=== PATIENT | female | born 1935 | race Caucasian/White ===

== ENCOUNTER → 2016-12-03 | Outpatient (CLI) | payer OTHER ==
[~2016-12-03] MED LIST: ADULT LOW DOSE81 MG PO; ADVAIR 250-501 EACH INH; ADVAIR 500-501 EACH INH; ADVAIR HFA115 MCG/21 INH; ALBUTEROL NEB; ASPIRIN EC81 M1 PO; ASPIRIN325 PO; AVELOX 400 MG400 MG PO; BENZONATATE200 MG PO; COMBIVENT INH; COSAMIN DS CAP1 EAC1 PO; DEMADEX20 MG PO; FIRST-PROGESTER25 MG PO; FISH OIL 1,0001 EAC5 PO; FISHOIL PO; GLUCOSAMINE &1 EAC1 PO; LEVAQUIN 500 M500 M4 PO; LEVAQUIN 500 M500 M5 PO; LEVAQUIN250 MG/10 PO; LEVSIN PO; LIDODERM 5%1 PATC1; OCUVITE PRESER1 EACH PO; OMEGA-3 + VITA1 EAC1 PO; PERCOCET; PHENERGAN-CODE120 ML PO; PREDNISOLONE 5 M5 MG PO; PREDNISONE 10 M10 M1; PREDNISONE 10 M10 M1 PO; PREDNISONE 10 M10 MG PO; PREDNISONE 2.52.5 M1 PO; PREDNISONE 20 M20 MG PO; PREDNISONE 5 MG5 M1 PO; PREMARIN0.3 MG PO; PROMETRIUM PO; SINGULAIR 10 MG10 M1 PO; VENTOLIN17 GM INH; ZYRTEC10 M1 PO
== END ==
LOC: HYPER 07:55
DX: I87.2 Venous insufficiency (chronic) (peripheral) (principal); L97.811 Non-pressure chronic ulcer of other part of right lower leg limited to breakdown of skin; S41.111D Laceration without foreign body of right upper arm, subsequent encounter; I25.10 Atherosclerotic heart disease of native coronary artery without angina pectoris; E78.5 Hyperlipidemia, unspecified; Z85.3 Personal history of malignant neoplasm of breast; Z87.891 Personal history of nicotine dependence; Z72.89 Other problems related to lifestyle; X58.XXXD Exposure to other specified factors, subsequent encounter; Y92.9 Unspecified place or not applicable; Y99.9 Unspecified external cause status

== ENCOUNTER → 2016-12-08 | Outpatient (CLI) | payer OTHER ==
[~2016-12-08] VITALS: Ht 167.6 cm; Wt 90.7 kg
[~2016-12-08] MED LIST changes: +AZITHROMYCIN250 MG PO; +DOXYCYCLINE 10100 MG PO; +OCCUVITE; +PRESERVISION L1 EACH PO; +TUDORZA PRESS400 MCG IH; +VITAMIN D 5050000 I1 PO
--- NOTE | ~2016-12-08 | HPC ---
[facility] [address] [place] [address] PAIN MANAGEMENT CONSULTATION Name: CARLOTA JOYCE Room #: REG BRENDAN Garcia#: [id number] Admission: 12/08/16 Attend Phys: Lebron Miner DO Discharge: Date of : 34 Report #: [id number] THIS REPORT FOR: //name// CC: Lebron Leavitt DATE OF SERVICE: 12/08/2016 DATE OF SERVICE: 12/08/2016 CHIEF COMPLAINT: Right shoulder pain. HISTORY OF PRESENT ILLNESS: As you know, the patient is an 81-year-old female with longstanding history of right shoulder pain. The patient indicates her pain began years ago and progressively worsened. She apparently received 2 injections at a clinic in [place], but is unaware of whether these were helpful or not. She is not even sure of the type of injection she received, but believes it was in the right shoulder. She has been undergoing massage therapy. She has been through 4 sessions and this appears to be improving her symptoms. She continues to experience right shoulder pain. She has been referred to our service by her primary care physician. She comes with no available imaging and no workup in regards to the right shoulder. She does deny any potential neck pain or radicular symptoms today. She indicates pain is rhythmic and periodic, describes the pain as aching and throbbing, places current pain score at 8/10, daily average of 5/10, worst the pain has been is 8/10. The patient states the pain is exacerbated with movement of her right shoulder. It improves with nothing to date. PAST MEDICAL HISTORY: 1. Pulmonary fibrosis. 2. Coronary artery disease. 3. Degenerative joint disease. 4. Osteoarthritis. 5. Breast cancer status post lumpectomy, chemotherapy and radiation. 6. History of shingles. PAST SURGICAL HISTORY: 1. Pacemaker 1990. 2. Tubal ligation. 3. Tonsillectomy. 4. Right lumpectomy. 5. Left radical mastectomy. 6. Multiple skin grafts. SOCIAL HISTORY: The patient smokes 1 pack of tobacco per day and has done so [facility] [address] [place] [address] PAIN MANAGEMENT CONSULTATION Name: CARLOTA JOYCE Room #: REG BRENDAN Garcia#: [id number] Admission: 12/08/16 Attend Phys: Lebron Miner DO Discharge: Date of : 34 Report #: [id number] for as long as she can remember. Denies IV or illicit drug use. Admits to one alcoholic beverage per week. She is retired, unaccompanied today's visit. She is not in litigation in regards to her pain. REVIEW OF SYSTEMS: Positive for wearing corrective eyewear, hearing loss with tinnitus, shortness of breath, walking or lying flat, frequent and recurrent coughs, secondary to pulmonary fibrosis, asthma, wheezing, frequent urination, nocturia, incontinence and dribbling to urine, numbness and tingling sensations, right shoulder pain, slow to heal after cuts, bleeding and bruising tendencies. All other review of systems negative per 12-point review of systems. Pain impact score 8/70 indicating mild interference of daily activities secondary to pain. ALLERGIES: No reported drug allergies. CURRENT MEDICATIONS: See extensive list in chart. IMAGING: No imaging available. PHYSICAL EXAMINATION: VITAL SIGNS: Blood pressure 147/73, pulse is 84, respiratory rate 22 and unlabored. The patient is 96% on room air. Height 5 feet 6 inches tall, weight 204 pounds. GENERAL: Well-developed, well-nourished, well-hydrated, morbidly obese 81-year-old female appearing stated age, placing current pain score today at 8/10. HEENT: Normocephalic, atraumatic. Pupils equal, round, reactive to light. Extraocular muscles are intact. Sclerae nonicteric without injection. NEUROLOGIC: Cranial nerves 2-12 grossly intact. Speech is fluent. The patient deemed a fair historian. LUNGS: Decreased breath sounds bilaterally. There is some wheezing in the bases and apices. CARDIOVASCULAR: Regular. No appreciable gallop or rub. ABDOMEN: Soft, nontender, nondistended. EXTREMITIES: Show no clubbing, no cyanosis, no edema. MUSCULOSKELETAL: The patient has palpatory tenderness over the right shoulder. Active and passive range of motion of right shoulder intensifies the patient's pain. Spurling's test is negative. Cervical provocation testing causes intensification of upper shoulder, lower neck pain with rotation, lateral flexion to the left, negative right. ASSESSMENT: 1. Right shoulder pain. 2. Chronic intractable pain. PLAN: [address] [address] PAIN MANAGEMENT CONSULTATION Name: CARLOTA JOYCE Room #: REG BRENDAN Garcia#: [id number] Admission: 12/08/16 Attend Phys: Lebron Miner DO Discharge: Date of : 34 Report #: [id number] 1. The patient has been referred to our service by her primary care physician, Dr. Milo Leavitt for evaluation. The patient comes to us reporting chronic right shoulder pain. She indicates that she received injections in [place], but cannot remember the injections nor can she remember whether or not she received any benefit. She comes to us today without x-ray imaging or imaging studies to evaluate further. Symptoms appear to be related strictly to the shoulder joint. I am unable to elicit any cervical radicular symptoms in the patient's presentation today. We have discussed with the patient the options for treatment for shoulder pain. These would include physical therapy, stretching exercises, core strengthening with increasing mobility. We discussed medication management with nonsteroidal anti-inflammatory. We discussed intra-articular shoulder injections and referral to orthopedic surgery assuming a significant pathology in the shoulder itself. After reviewing the risks and benefits of all proposed treatment options, the patient chose to undergo right intra-articular shoulder injection. The patient was advised the risks and benefits of a right intra-articular shoulder injection. These risks include but are not necessarily limited to bleeding, bruising, infection, worsening pain, no relief of pain, also risk of temporary or permanent muscle weakness, temporary or permanent nerve damage, possible paralysis and joint destruction. The patient states understood and wished to proceed. 2. The patient will be sent for right shoulder Imaging. The patient will undergo the x-ray imaging as quickly as possible. Review of the findings once they are available. If findings are fairly inconsistent with her presentation, would recommend MRI of the right shoulder or at least a referral to orthopedics for evaluation. We will review the x-ray imaging once this is available and discussed this with the patient in followup visit. 3. No medication changes were made at today's visit. The patient will continue current medical therapy as previously prescribed. 4. The patient to return to our clinic in approximately 2 weeks. At that time, review efficacy of the injection provided today and discuss if we need to move forward with more aggressive treatments. We wish to thank you for the opportunity to see the patient home in consultation. We will keep you apprised of her response to treatment. PROCEDURE NOTE DESCRIPTION OF PROCEDURE: Right intra-articular shoulder injection under fluoroscopic guidance. After obtaining written consent, the patient was taken back to fluoroscopy suite, placed in a supine position. The area over the right shoulder was prepped and draped in aseptic fashion. The image intensifier was then brought into position over the right shoulder and imaging was obtained. The area of the injection was marked with a sterile marker. [address] [address] PAIN MANAGEMENT CONSULTATION Name: CARLOTA JOYCE Room #: REG BRENDAN Garcia#: [id number] Admission: 12/08/16 Attend Phys: Lebron Miner DO Discharge: Date of : 34 Report #: [id number] A #25 gauge 1-1/4 inch needle was used to anesthetize skin and subcutaneous tissue with 1 mL of 1% lidocaine. A #25-gauge 2-inch needle was then advanced under fluoroscopic guidance into the right shoulder joint. After entering the joint, aspiration was noted to be negative for heme, 0.2 mL of Omnipaque was injected demonstrating excellent facet arthrogram. After negative aspiration for heme, 3 mL of solution containing 1 mL 40 mg per mL, 40 mg total triamcinolone, 2 mL bupivacaine 0.5% was injected slowly. Needle retracted correction, flushed with 1 mL of bupivacaine 0.5% and removed. Sterile bandage placed over injection site. The patient tolerated the procedure well, carefully escorted to the recovery in stable condition. No apparent complications. After meeting discharge criteria, the patient discharged home. By: [id number] [id number] Lebron Miner DO /nt
[2016-12-08 09:54] VITALS: BP 142/81
== END | disposition home or self-care (01) ==
LOC: PAIN 12-06 10:25
DX: M25.511 Pain in right shoulder (principal); G89.29 Other chronic pain; I25.10 Atherosclerotic heart disease of native coronary artery without angina pectoris; M19.90 Unspecified osteoarthritis, unspecified site; F17.210 Nicotine dependence, cigarettes, uncomplicated; Z85.3 Personal history of malignant neoplasm of breast; Z98.890 Other specified postprocedural states

== ENCOUNTER → 2016-12-22 | Outpatient (CLI) | payer OTHER ==
[~2016-12-22] VITALS: Ht 157.5 cm; Wt 76.7 kg
[~2016-12-22] MED LIST changes: +FLEXERIL PO; +MOBIC7.5 MG PO
--- NOTE | ~2016-12-22 | HPC ---
[facility] [place] [address] PAIN MANAGEMENT CONSULTATION Name: CARLOTA JOYCE Room #: REG BRENDAN Jose#: [id number] Admission: 12/22/16 Attend Phys: Lebron Miner DO Discharge: Date of : 34 Report #: [id number] THIS REPORT FOR: //name// CC: Lebron Leavitt MD DATE OF SERVICE: 12/22/2016 REFERRING PHYSICIAN: Milo Leavitt MD. CHIEF COMPLAINT: Right shoulder pain. HISTORY OF PRESENT ILLNESS: As you know, the patient is an 81-year-old female with a longstanding history of right shoulder pain. We saw the patient in consultation per the request of Dr. Leavitt on 12/08/2016, when she was diagnosed with right shoulder arthritis and right shoulder pain. She underwent an intra-articular shoulder injection under fluoroscopic guidance, which provided near 100% improvement in overall pain. Her pain at present is 0/10. She returns today in followup visit to discuss the possibility of moving forward with the next in the series of injections if her pain does return. She is doing well. She has been able to return to all activities of daily living without significant pain interference. ALLERGIES: No known drug allergies. CURRENT MEDICATIONS: Ocuvite, vitamin D, doxycycline, Tudorza, azithromycin, prednisone, Advair, Combivent, Zyrtec, Singulair, albuterol, and beta-carotene. SOCIAL HISTORY: The patient denies IV or illicit drug use. Denies significant alcohol use. She continues to smoke one pack of tobacco per day. She is retired. She is unaccompanied today. IMAGING: No new imaging available. PHYSICAL EXAMINATION: VITAL SIGNS: Blood pressure 129/58, pulse 85, respiratory rate 14 and unlabored. The patient is 99% on room air, height 5 feet 2 inch tall, weight 169 pounds, BMI calculated 30.9. GENERAL: Well-developed, well-nourished, and well-hydrated. Exogenously obese 81-year-old female appearing her stated age. She is placing current pain score 0/10. HEENT: Normocephalic and atraumatic. Pupils are equal, round, and reactive to light. Extraocular muscles are intact. EXTREMITIES: Show no clubbing, no cyanosis, no edema. MUSCULOSKELETAL: Active and passive range of motion of right shoulder is met [address] [address] PAIN MANAGEMENT CONSULTATION Name: NANICARLOTA GOETZ Room #: REG CLI [facility]#: [id number] Admission: 12/22/16 Attend Phys: Lebron Miner DO Discharge: Date of : 34 Report #: [id number] with improved mobility, very little pain is elicited with movement today. There is some palpatory tenderness over the shoulder itself. This is fairly mild. Cervical provocation testing does cause intensification of shoulder pain. Spurling's test is negative. ASSESSMENT: 1. Right shoulder pain. 2. Chronic intractable pain. PLAN: 1. The patient has returned today in followup visit now, reporting pain score 0/10 after our intra-articular shoulder injection. The patient has done very well with this injection. I would recommend that we delay the next in the series of injections until which time her pain returns. She has been doing very well, returning to all activities of daily living without pain interference. We would recommend continuation of this activity until which time her pain intensifies. We would then make an appointment back to undergo the next in the series of intra-articular shoulder injections. If these shoulder injections do not provide benefit from a long-term standpoint, we could consider medication management or referral to orthopedics for evaluation for rotator cuff injuries. From cervical radicular symptoms, I am unable to elicit any of these again today. She does have findings in the cervical spine that would be a possibility of cervical radiculopathy, but given the improvement in symptoms with the right shoulder pain, I believe that her main generator of symptoms at this time is the right shoulder. We will continue to concentrate on the shoulder at her followup visit. 2. We are pleased to see the patient has done very well with this injection. We will be returning her care to her primary care physician, but we are available to see her back in followup visit on an as needed basis for possible next in the series of intra-articular shoulder injections. <ELECTRONICALLY SIGNED> By: Lebron Miner DO 12/28/16 1602 0728 1247 Lebron Miner DO /nt
[2016-12-22 09:17] VITALS: BP 129/58
== END ==
LOC: PAIN 07:28
DX: G89.29 Other chronic pain (principal); F17.210 Nicotine dependence, cigarettes, uncomplicated; M13.811 Other specified arthritis, right shoulder

== ENCOUNTER → 2017-02-17 | Outpatient (CLI) | payer OTHER | LOC: RAD 14:51 | DX: J84.112 Idiopathic pulmonary fibrosis (principal) ==

== ENCOUNTER 2017-05-30 04:10 | Inpatient (IN) | payer OTHER ==
[2017-05-30] VITALS (8 sets, daily range): BP systolic 104–114; BP diastolic 51–62
[~2017-05-30] VITALS: Ht 162.6 cm; Wt 74.9 kg
--- NOTE | ~2017-05-30 | HC ---
[facility] [place] [address] CONSULTATION Name: CARLOTA JOYCE Room #: 444-P ADM IN M.R.#: [id number] Admission: 05/30/17 Attend Phys: Milo Leavitt MD Discharge: Date of : 34 Report #: [id number] THIS REPORT FOR: //name// CC: Milo Leavitt REASON FOR CONSULTATION: Shortness of breath. HISTORY OF PRESENT ILLNESS: The patient is an 82-year-old woman with history of significant underlying lung disease and COPD. She presents with productive cough and fevers with chills. She was seen in the emergency department where she was hypoxemic and febrile to in excess of 101 degrees. She denies chest heaviness or pressure. No orthopnea or paroxysmal nocturnal dyspnea. The patient has a history of a moderate nonischemic cardiomyopathy, possibly related to ventricular pacing versus prior chemotherapy that she received for remote breast cancer. She denies significant heart failure symptoms. No chest pain, pressure, or ischemic type symptoms. ALLERGIES: To SULFA and PENICILLIN. MEDICATIONS: Include albuterol, Zyrtec, Advair, Combivent, Singulair, prednisone, and vitamin D. PAST MEDICAL HISTORY: Medical records have been reviewed and include a history of heart block with prior pacemaker, lumpectomy in 1982, on the right; left breast cancer in 2013, skin grafting to the right leg, tubal ligation, and tonsillectomy. SOCIAL HISTORY: She is a former smoker, lives independently. FAMILY HISTORY: Unremarkable for premature coronary artery disease. REVIEW OF SYSTEMS: All systems negative except as that noted above. PHYSICAL EXAMINATION: GENERAL: A pleasant woman, in no distress. VITAL SIGNS: Blood pressure is 127/69, heart rate is 78 and regular, temperature is 97.6 degrees, 5 feet 4 inches tall, 165 pounds. HEENT: There are neither xanthelasma, subcutaneous xanthomata, oral mucosal or digital cyanosis or kyphoscoliosis present. CHEST: Reveals bibasilar diminished breath sounds at both bases. There are scattered rhonchi. CARDIAC: Regular rate and rhythm with a paradoxically split second heart sound. ABDOMEN: Soft and nontender. EXTREMITIES: With trace edema. Radial pulses are 2+. NEUROLOGIC: She is alert with a nonfocal exam. LABORATORY DATA: EKG, sinus rhythm with ventricular pacing. Sodium 140, [facility] [address] [place] [address] CONSULTATION Name: CARLOTA JOYCE Room #: 444-P ADM IN M.R.#: [id number] Admission: 05/30/17 Attend Phys: Milo Leavitt MD Discharge: Date of : 34 Report #: [id number] potassium 4.1, creatinine 0.7. Troponin is negative. ProBNP of 4192. White count of 19,000, hemoglobin 10, hematocrit 32, and platelet count 129. Chest x-ray demonstrates left lower lobe pneumonia. IMPRESSION: 1. Pneumonia with hypoxemic respiratory failure. 2. Moderate cardiomyopathy; chronic systolic heart failure. 3. Heart block with prior pacemaker implantation. 4. Pulmonary fibrosis. 5. History of remote breast cancer. RECOMMENDATIONS: 1. Addition of losartan to medical regimen. I believe that carvedilol and/or beta blockade represents relative contraindication in light of her severe lung disease. 2. Her proBNP elevation I suspect reflects more right heart failure from pneumonia than it does systolic heart failure. 3. We will follow along with you. Thank you for asking me to participate in her care. <ELECTRONICALLY SIGNED> By: Afshin Rhodes MD, [facility] 06/02/17 0825 0900 1110 Afshin Rhodes MD, FAC /nt
--- NOTE | ~2017-05-30 | EKG ---
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 Manager In Training: Kandy BELTRÁN : 1935 Requested By: Aileen Corral Order Number: [id number] MD: Afshin Rhodes Measurements Intervals [place] Rate: 112 P: 164 [place]: 18 QRS: 134 QRSD: 141 T: 159 QT: 402 QTc: 549 Interpretive Statements Incomplete tracing Ventricular-paced rhythm No further analysis attempted due to paced rhythm Baseline wander in lead(s) V4 Recommend repeat tracing with all leads present Electronically Signed On 05-30-2017 16:25:41 CDT by Afshin Rhodes [email or web address] <ELECTRONICALLY SIGNED> By: Afshin Rhodes MD, [facility] 05/30/17 1625 0417 0417 Afshin Rhodes MD, [facility] /EPI
--- NOTE | ~2017-05-30 | EKG ---
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 : 1935 Requested By: Lebron Arguelles Order Number: [id number] MD: Afshin Rhodes Measurements Intervals [place] Rate: 94 P: 125 [place]: 192 QRS: -48 QRSD: 140 T: 102 QT: 409 QTc: 512 Interpretive Statements Atrial-sensed ventricular-paced rhythm No further analysis attempted due to paced rhythm Compared to ECG 05/29/2011 14:55:47 No significant changes Electronically Signed On 05-30-2017 16:36:17 CDT by Afshin Rhodes [email or web address] <ELECTRONICALLY SIGNED> By: Afshin Rhodes MD, [facility] 05/30/17 1636 1052 1052 Afshin Rhodes MD, [facility] /EPI
--- NOTE | ~2017-05-30 | HC ---
[facility] [place] [address] CONSULTATION Name: CARLOTA JOYCE Room #: 444-P ADM IN M.R.#: [id number] Admission: 05/30/17 Attend Phys: Milo Leavitt MD Discharge: Date of : 34 Report #: [id number] THIS REPORT FOR: //name// CC: Milo Leavitt DATE OF SERVICE: 05/30/2017 PRIMARY CARE PHYSICIAN: Milo Leavitt MD. REFERRING PHYSICIAN: Aileen Corral DO. REASON FOR REFERRAL: Dyspnea. HISTORY OF PRESENT ILLNESS: The patient is an 82-year-old white female who presents to the emergency room with febrile illness and fever. The patient is admitted for presumed pneumonia. A pulmonary consultation was requested. The patient is followed longitudinally by Dr. Harmon for asthma. She has done fairly well until this past summer when she was hospitalized in [place] for pneumonia. She was in her usual state of health until 3 days prior to presentation when she noticed that she has gotten weaker than normal along with low-grade fever, cough productive of yellowish sputum. With worsening of symptoms, she presents to the emergency room. Portable chest x-ray performed in the ER revealed small bilateral pleural effusion, greater in the left than the right, infiltrates seen in the right lower lobe along with small lung volumes bilaterally. 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 PAST SURGICAL HISTORY: As mentioned above, status post tubal ligation, tonsillectomy, status post right lumpectomy in 1982, left breast lumpectomy in year 2013, and skin grafts in the right leg. ALLERGIES: PENICILLIN, SULFA, reactions not specified. HOME MEDICATIONS: Reviewed. These include Ventolin 2 puffs q.i.d. p.r.n., xvok-zmj-veefgdt supplements, Zyrtec, Advair 500 mcg 1 puff b.i.d., Combivent 2 puffs p.r.n., Montelukast 10 mg once a day, prednisone 10 mg once a day, Tudorza 400 mcg 2 puffs twice a day, recent course of doxycycline 100 mg p.o. b.i.d., [address] [address] CONSULTATION Name: CARLOTA JOYCE Room #: 444-P [facility] IN .R.#: [id number] Admission: 05/30/17 Attend Phys: Milo Leavitt MD Discharge: Date of : 34 Report #: [id number] and vitamin D supplements. FAMILY HISTORY: Noncontributory. SOCIAL HISTORY: She states she smoked for about 4 years when she was young adult. She denies any alcohol use. She is and lives with . REVIEW OF SYSTEMS: As mentioned above, otherwise a 10-point system review negative. PHYSICAL EXAMINATION: GENERAL: She is awake, alert, in no apparent distress. VITAL SIGNS: Temperature maximum is 101.1 degrees Fahrenheit, pulse is 105, respiratory rate is 20, blood pressure 111/52 mmHg, and saturation 96% on supplemental O2. HEENT: Normocephalic and atraumatic. NECK: Supple without any lymphadenopathy or thyromegaly. CHEST: Breath sounds are decreased with bibasilar crackles. No wheezes. CARDIOVASCULAR: Heart sounds are distant. Normal S1, S2. There have been no overt murmurs or gallop. Pulses are 2+/4+ bilaterally. BREASTS: Deferred. ABDOMEN: Moderately obese, soft, and nontender. No organomegaly or masses felt. GENITOURINARY: Deferred. RECTAL: Deferred. EXTREMITIES: Trace edema bilaterally. No cyanosis or clubbing. LABORATORY DATA: Chest x-ray as mentioned above, showing bibasilar infiltrates, atelectasis, small pleural effusion bilaterally, and cardiomegaly. Electrolytes are normal. Creatinine is 1.1. WBC 24,000 and hemoglobin 12.4. No evidence of significant bandemia. IMPRESSION: 1. Pleuritic type chest pain, febrile illness in this 82-year-old white female. She has productive cough with purulent sputum. Laboratory data shows leukocytosis. Chest x-ray finding as mentioned above, showing possible bibasilar infiltrates. 2. Pneumonia is felt to likely. Need to consider possible aspiration or Gram negative. Exacerbation of asthma may be contributing. 3. History of asthma, severity unknown. 4. History of breast cancer in 1982, status post radiation therapy to the right chest with radiation-induced lung injury. 5. Cardiomyopathy, type not specified, history of complete heart block status post permanent pacemaker placement. This is possibly nonischemic. Chest x-ray shows cardiomegaly with small bilateral pleural effusion. Volume overload is suggested. We would recommend gentle diuresis. [facility] [address] [place] [address] CONSULTATION Name: CARLOTA JOYCE Room #: 444-P ADM IN M.R.#: [id number] Admission: 05/30/17 Attend Phys: Milo Leavitt MD Discharge: Date of : 34 Report #: [id number] RECOMMENDATIONS: We will start broad-spectrum antibiotics to cover for pneumonia. We will continue bronchodilators. With a history of asthma and pleuritic chest pain, we would increase corticosteroid therapy along with bronchodilators. DVT and GI prophylaxis will be addressed. We would also recommend gentle diuresis. Thank you for this consultation. <ELECTRONICALLY SIGNED> By: Carlos Li MD 06/02/17 1233 [id number] [id number] Carlos Li MD /nt
[2017-05-30 04:46] LABS: HEMATOCRIT 38.8 % (37.0-47.0); HEMOGLOBIN 12.4 gm/dL (12.0-15.0); MCH 28.7 pg (26.0-34.0); MCHC 31.9 g/dL (28.0-37.0); MCV 89.9 fL (80.0-100.0); PLATELET COUNT 169 thou/uL (150-400); RBC 4.32 mil/uL (4.20-5.00); RDW 15.7 % (10.5-14.5)
[2017-05-30 04:59] LABS: MANUAL DIFF YES
[2017-05-30 05:18] LABS: CALCIUM 8.7 mg/dL (8.5-10.1); CREATININE 1.1 mg/dL (0.6-1.0); POTASSIUM 3.7 mmol/L (3.5-5.1)
[2017-05-30 05:26] LABS: TROPONIN-I 0.06 ng/mL (<0.04-0.07)
[2017-05-30 05:29] LABS: ABSOLUTE NEUTROPHILS 19.2 thou/uL (1.4-8.2); TOTAL CELL COUNT 100
[2017-05-31 03:01] VITALS: BP 121/62
[2017-05-31 06:51] LABS: HEMOGLOBIN 10.7 gm/dL (12.0-15.0); MCHC 33.4 g/dL (28.0-37.0); MCV 86.8 fL (80.0-100.0); RBC 3.68 mil/uL (4.20-5.00); RDW 15.2 % (10.5-14.5); WBC 19.4 thou/uL (4.0-11.0)
[2017-05-31 07:04] LABS: CALCIUM 8.4 mg/dL (8.5-10.1); CREATININE 0.7 mg/dL (0.6-1.0); POTASSIUM 4.1 mmol/L (3.5-5.1)
[2017-05-31 08:27] VITALS: BP 127/69
[2017-05-31 18:08] VITALS: BP 135/67
[2017-05-31 20:00] VITALS: BP 131/58
[2017-06-01 03:20] LABS: HEMATOCRIT 31.7 % (37.0-47.0); HEMOGLOBIN 10.3 gm/dL (12.0-15.0); MCH 28.3 pg (26.0-34.0); MCHC 32.4 g/dL (28.0-37.0); MCV 87.4 fL (80.0-100.0); RBC 3.63 mil/uL (4.20-5.00); RDW 15.4 % (10.5-14.5); WBC 19.6 thou/uL (4.0-11.0)
[2017-06-01 04:00] VITALS: BP 136/72
[2017-06-01 08:27] VITALS: BP 141/82
[2017-06-01 15:34] VITALS: BP 126/62
[2017-06-01 20:06] VITALS: BP 133/68
[2017-06-02 04:08] VITALS: BP 131/64
[2017-06-02 08:31] VITALS: BP 140/75
[2017-06-02 10:42] LABS: URINE BILIRUBIN NEGATIVE (Negative); URINE BLOOD NEGATIVE (Negative); URINE COLOR YELLOW; URINE GLUCOSE-RANDOM* NEGATIVE (Negative); URINE KETONES NEGATIVE (Negative); URINE LEUKOCYTES-REFLEX NEGATIVE (Negative); URINE PROTEIN (DIPSTICK) NEGATIVE (Negative); URINE SPECIFIC GRAVITY <= 1.005 (1.003-1.035); URINE UROBILINOGEN 0.2 E.U./dl (0.2-1.0)
[2017-06-02 16:11] VITALS: BP 126/63
[2017-06-02 20:30] VITALS: BP 129/54
[2017-06-03 04:00] VITALS: BP 140/85
[2017-06-03 06:17] LABS: HEMATOCRIT 34.4 % (37.0-47.0); HEMOGLOBIN 11.2 gm/dL (12.0-15.0); MCH 28.4 pg (26.0-34.0); MCHC 32.7 g/dL (28.0-37.0); MCV 86.9 fL (80.0-100.0); RBC 3.95 mil/uL (4.20-5.00); RDW 15.1 % (10.5-14.5); WBC 14.3 thou/uL (4.0-11.0)
[2017-06-03 06:26] LABS: CALCIUM 8.4 mg/dL (8.5-10.1); CREATININE 0.9 mg/dL (0.6-1.0); POTASSIUM 4.1 mmol/L (3.5-5.1)
[2017-06-03 07:23] VITALS: BP 143/75
[2017-06-03] MEDS ORDERED: K-DUR 20 MEQ T20 MEQ PO (07:42)
[2017-06-03] MEDS ORDERED: LASIX 20 MG TAB20 MG PO (07:42)
[2017-06-03] MEDS ORDERED: BENZONATATE100 MG PO (07:42)
[2017-06-03] MEDS ORDERED: GUAIFENESIN/COD10 M1 PO (07:43)
[2017-06-03] MEDS ORDERED: PREDNISONE 20 M20 M1 PO (07:43)
[2017-06-03 11:50] VITALS: BP 143/75
[2017-06-03 13:38] VITALS: BP 143/75
[2017-06-03 15:47] VITALS: BP 143/75
[2017-06-03 23:07] LABS: INFLUENZA B Negative (Negative); METAPNEUMOVIRUS Negative (Negative)
== END 2017-06-03 16:45 | disposition home health service (06) | DRG 871 ==
LOC: ER 04:10 → EROBS 05:36 → 4S 05:36 → ENTRNSPT 06-03 16:32 → 4S 06-03 16:45
PROVIDERS: Emergency Medicine; Family Medicine; Internal Medicine Pulmonary Disease
PROC: 05H633Z Insertion of Infusion Device into Left Subclavian Vein, Percutaneous Approach (ICD-10-PCS; principal; 2017-06-02)
DX: A41.9 Sepsis, unspecified organism (principal); J15.1 Pneumonia due to Pseudomonas; I50.33 Acute on chronic diastolic (congestive) heart failure; J44.1 Chronic obstructive pulmonary disease with (acute) exacerbation; I42.8 Other cardiomyopathies; I50.22 Chronic systolic (congestive) heart failure; J96.11 Chronic respiratory failure with hypoxia; R65.20 Severe sepsis without septic shock; J84.10 Pulmonary fibrosis, unspecified; R07.81 Pleurodynia; J45.909 Unspecified asthma, uncomplicated; I45.9 Conduction disorder, unspecified; Z16.23 Resistance to quinolones and fluoroquinolones; Z85.3 Personal history of malignant neoplasm of breast; Z88.2 Allergy status to sulfonamides; Z88.0 Allergy status to penicillin; Z79.899 Other long term (current) drug therapy; Z95.0 Presence of cardiac pacemaker; Z98.51 Tubal ligation status; Z87.891 Personal history of nicotine dependence
CPT/HCPCS: 10100; 27000

== ENCOUNTER → 2017-06-21 | Outpatient (CLI) | payer OTHER ==
[~2017-06-21] MED LIST changes: +BENZONATATE100 MG PO; +GUAIFENESIN/COD10 M1 PO; +K-DUR 20 MEQ T20 MEQ PO; +LASIX 20 MG TAB20 MG PO; +PREDNISONE 20 M20 M1 PO
== END ==
LOC: RAD 12:12
DX: J18.9 Pneumonia, unspecified organism (principal)

== ENCOUNTER → 2017-10-03 | Outpatient (CLI) | payer OTHER ==
[~2017-10-03] MED LIST changes: +TYLENOL EXTRA500 MG PO; +VOLTAREN GEL 1100 G1 TOP
== END ==
LOC: HYPER 09:11
DX: S80.211A Abrasion, right knee, initial encounter (principal); I25.10 Atherosclerotic heart disease of native coronary artery without angina pectoris; E78.5 Hyperlipidemia, unspecified; Z98.49 Cataract extraction status, unspecified eye; Z95.0 Presence of cardiac pacemaker; Z87.891 Personal history of nicotine dependence; Z85.3 Personal history of malignant neoplasm of breast; Z72.89 Other problems related to lifestyle; X58.XXXA Exposure to other specified factors, initial encounter; Y93.89 Activity, other specified; Y92.89 Other specified places as the place of occurrence of the external cause; Y99.8 Other external cause status

== ENCOUNTER → 2017-10-17 | Outpatient (CLI) | payer OTHER | LOC: HYPER 10-11 13:11 | DX: T81.31XA Disruption of external operation (surgical) wound, not elsewhere classified, initial encounter (principal); S80.211D Abrasion, right knee, subsequent encounter; I25.10 Atherosclerotic heart disease of native coronary artery without angina pectoris; E78.5 Hyperlipidemia, unspecified; Z85.3 Personal history of malignant neoplasm of breast; Z87.891 Personal history of nicotine dependence; Z72.89 Other problems related to lifestyle; Y83.8 Other surgical procedures as the cause of abnormal reaction of the patient, or of later complication, without mention of misadventure at the time of the procedure ==

== ENCOUNTER → 2017-11-14 | Outpatient (CLI) | payer OTHER | LOC: HYPER 10-31 07:00 | DX: T81.89XD Other complications of procedures, not elsewhere classified, subsequent encounter (principal); S01.301D Unspecified open wound of right ear, subsequent encounter; S80.211D Abrasion, right knee, subsequent encounter; I25.10 Atherosclerotic heart disease of native coronary artery without angina pectoris; E78.5 Hyperlipidemia, unspecified; Z87.891 Personal history of nicotine dependence; Z85.3 Personal history of malignant neoplasm of breast; Z72.89 Other problems related to lifestyle; Z95.0 Presence of cardiac pacemaker; X58.XXXD Exposure to other specified factors, subsequent encounter; Y83.8 Other surgical procedures as the cause of abnormal reaction of the patient, or of later complication, without mention of misadventure at the time of the procedure ==

== ENCOUNTER → 2017-11-28 | Outpatient (CLI) | payer OTHER | LOC: HYPER 06:47 | DX: S80.211D Abrasion, right knee, subsequent encounter (principal); I25.10 Atherosclerotic heart disease of native coronary artery without angina pectoris; E78.5 Hyperlipidemia, unspecified; Z85.3 Personal history of malignant neoplasm of breast; Z87.891 Personal history of nicotine dependence; Z72.89 Other problems related to lifestyle; X58.XXXD Exposure to other specified factors, subsequent encounter ==

== ENCOUNTER → 2017-12-02 | Outpatient (CLI) | payer OTHER ==
[~2017-12-02] VITALS: Ht 162.6 cm; Wt 69.7 kg
--- NOTE | ~2017-12-02 | HPC ---
[facility] [address] [address] PAIN MANAGEMENT CONSULTATION Name: CARLOTA JOYCE Room #: REG BRENDAN Garcia#: [id number] Admission: 12/02/17 Attend Phys: Belia Mendez MD Discharge: Date of : 34 Report #: [id number] THIS REPORT FOR: //name// CC: Belia Leavitt MD DATE OF SERVICE: 12/02/2017 FOLLOWUP COMPLAINT: Pain in the right shoulder. FOLLOWUP HISTORY: The patient is an 82-year-old female who has been seen in the pain clinic by Dr. Lebron Miner. She underwent a right intraarticular shoulder injection. She has a long history of right shoulder pain. She noticed benefit from that. This was in 2017. She has been having some pain in the right shoulder as well as in her back. She describes it as throbbing and rates it as an 8/10. She continues to take nonsteroidal anti-inflammatory medications such as Meloxicam as well as she is on a regimen of prednisone 10 mg daily. Because of the worsening of pain, she has returned to the pain clinic for reevaluation and possible repeat of the right shoulder injection. She notes increased pain and discomfort with activities of daily living. Denies any new trauma to the shoulder. She has had breast surgery because of cancer and is status post lumpectomy. ALLERGIES: PENICILLIN AND SULFA. MEDICATIONS: Review of current medications include: Tylenol Extra Strength 500 mg q. 4 hours p.r.n., prednisone 20 mg tablets takes one b.i.d., guaifenesin-codeine 100/10 q.4h. p.r.n. cough, benzonatate 100 mg q.8h. p.r.n. cough, Lasix 20 mg daily, potassium 20 mEq daily, vitamin C, vitamin D 50,000 international units, Tudorza Pressair 400 mcg inhalation b.i.d., Advair 500/50 Diskus inhalation b.i.d. 2 puffs, Combivent inhaler, Zyrtec 10 mg tablets chewed, Singulair 10 mg at bedtime, Ventolin 2 puffs q. 4-6 hours p.r.n. shortness of air, and beta carotene. PAST MEDICAL HISTORY: 1. Pulmonary fibrosis. 2. Coronary artery disease. 3. Degenerative joint disease. 4. Osteoarthritis. 5. Breast cancer status post lumpectomy, chemotherapy, and radiation. 6. History of shingles. PAST SURGICAL HISTORY: 1. Pacemaker in 1990. 2. Tubal ligation. [address] [address] PAIN MANAGEMENT CONSULTATION Name: CARLOTA JOYCE Room #: REG BRENDAN Garcia#: [id number] Admission: 12/02/17 Attend Phys: Belia Mendez MD Discharge: Date of : 34 Report #: [id number] 3. Tonsillectomy. 4. Right lumpectomy. 5. Left radical mastectomy. 6. Multiple skin grafting. PAIN CLINIC ASSESSMENT: 1. History of osteoarthritis. The patient is being treated for osteoarthritis. 2. Height 5 feet 4 inches, weight 153 pounds, BMI is 26. 3. Vital signs: Blood pressure 127/77, pulse 61, respiratory rate 16, room air saturation 97%. 4. Pain intensity: 10/10. 5. Fall risk: The patient has not fallen in the last few weeks. The patient does use a walker. 6. Blood thinner. The patient is not on a blood thinner. 7. History of hypertension. The patient is not being treated for hypertension. 8. Opioid therapy greater than 6 weeks: The patient is not receiving opioids on a regular basis. 9. Risk assessment tool. 10. Functional assessment total. 11. Recreational drug use. The patient denies use of recreational drugs. 12. Tobacco: The patient is a former smoker and has stopped. 13. Alcohol. The patient denies frequent alcohol use. PHYSICAL EXAMINATION: GENERAL: The patient is an 81-year-old female. She appears her stated age. She is not in any acute distress. Her affect appears appropriate. HEENT: Normocephalic, atraumatic. Extraocular eye muscles intact. Hearing within normal limits. No significant nasal complaints. NECK: Without adenopathy. No JVD. CHEST: Decreased breath sounds bilaterally. HEART: Regular rate. ABDOMEN: Protuberant. EXTREMITIES: Upper extremities, the patient has pain and discomfort in the right shoulder. Has some limited range of motion. Palpation in the right shoulder area does with movement cause and reproduce pain and discomfort. She rates it as 10/10. IMPRESSION: 1. Right shoulder pain, which improved with an intraarticular injection in November 2016. 2. Pulmonary fibrosis. 3. Coronary artery disease. 4. Degenerative joint disease. 5. Osteoarthritis. 6. Breast cancer, status post lumpectomy, chemotherapy and radiation. 7. History of pacemaker. [facility] [address] [place] [address] PAIN MANAGEMENT CONSULTATION Name: CARLOTA JOYCE Room #: REG BRENDAN Greenberg#: [id number] Admission: 12/02/17 Attend Phys: Belia Mendez MD Discharge: Date of : 34 Report #: [id number] RECOMMENDATIONS: We discussed treatment options with the patient. She has had injections in the past and noted improvement. The patient does note increased pain and discomfort and has tenderness over the right shoulder with palpation. Active and passive range of motion of her shoulder intensifies her pain. She rates it as 10/10. Cervical provocation testing causes some increased pain in her upper shoulder. She has gleaned benefit from the procedure in the past. At this juncture, she would like to proceed with another injection. We discussed the risks and benefits of the procedure. They include but are not limited to infection, worsening of pain, no improvement in pain as well as muscle and bone/cartilage trauma. She elects to proceed. PROCEDURE NOTE: The patient was placed in the supine position. Fluoroscopy was used to identify the right shoulder area. This area had been sterilely prepped with chlorhexidine solution. It was allowed to dry. After imaging, a 25-gauge needle was then placed in the area of the right humeral head at approximately 11 o'clock. The needle was then advanced. After entering into the joint, aspiration was negative. An Omnipaque injection was used. After repositioning the needle in the appropriate place with appropriate placement, arthrogram was appropriate for injection. A total of 40 mg triamcinolone and 3 mL bupivacaine 0.5% was slowly injected. The needle was retracted. Band-Aid was placed in this area. The patient tolerated the procedure well. She was taken to the recovery room where she remained for an appropriate amount of time. Her pain decreased from 10 to 0 at the time of discharge. She will follow up in the future as needed. A total of 36 seconds fluoroscopy time was used. We would like to thank you for letting us participate in her care. We hope she continues to improve. <ELECTRONICALLY SIGNED> By: Belia Mendez MD 12/16/17 0823 [id number] Belia Mendez MD /PMT
[2017-12-02 13:06] VITALS: BP 127/77
== END | disposition home or self-care (01) ==
LOC: PAIN 12:19
DX: M25.511 Pain in right shoulder (principal); J84.10 Pulmonary fibrosis, unspecified; I25.10 Atherosclerotic heart disease of native coronary artery without angina pectoris; M19.90 Unspecified osteoarthritis, unspecified site; Z80.3 Family history of malignant neoplasm of breast; Z95.0 Presence of cardiac pacemaker; I10 Essential (primary) hypertension; F11.20 Opioid dependence, uncomplicated; Z88.0 Allergy status to penicillin; Z88.8 Allergy status to other drugs, medicaments and biological substances; Z98.890 Other specified postprocedural states

== ENCOUNTER → 2017-12-14 | Outpatient (CLI) | payer OTHER ==
[~2017-12-14] VITALS: Ht 162.6 cm; Wt 62.4 kg
--- NOTE | ~2017-12-14 | HPC ---
[facility] [place] [address] [place] [address] PAIN MANAGEMENT CONSULTATION Name: CARLOTA JOYCE Room #: REG [facility] Yari.#: [id number] Admission: 12/14/17 Attend Phys: Belia Mendez MD Discharge: Date of : 34 Report #: [id number] THIS REPORT FOR: //name// CC: Belia Finn DATE OF SERVICE: 12/14/2017 FOLLOWUP COMPLAINT: Pain in the right shoulder is about 50% improved. FOLLOWUP HISTORY: The patient is an 82-year-old female who has been seen in the pain clinic because of pain and discomfort involving the right shoulder. She underwent an intra-articular joint injection at the last visit. She feels that her pain is improved by at least 50%. She rates her pain as a 4/5 at this juncture. She is still having some discomfort and has returned to the pain clinic for evaluation. She had no complication from the procedure. No signs of infection. Notes increased range of motion in her arms with less discomfort. Hope she has had an injection in the same shoulder a number of years ago and gleaned good benefit from this and has returned today for evaluation. She has had no complications. Overall, feels that things have improved. She is concerned wondering whether and are when she could consider another injection. ALLERGIES: PENICILLIN AND SULFA. MEDICATIONS: Include Tylenol Extra Strength 500 mg q.4 hours p.r.n., prednisone 20 mg tablets 1 p.o. b.i.d., guaifenesin/codeine 100/10 mg q.4 hours p.r.n. cough, Benzonate 100 mg q.8 hours p.r.n., cough, Lasix 20 mg daily, potassium 20 mEq daily, vitamin C, vitamin D 50,000 units, Tudorza Pressair 400 mg inhalation b.i.d., Advair 500/50 mg disk inhalation b.i.d. 2 puffs, Combivent inhaler, Zyrtec 10 mg tablets chewed, Singulair 10 mg at bedtime, Ventolin 2 puffs q.4-6 hours p.r.n., beta carotene. PAIN CLINIC ASSESSMENT: 1. Osteoarthritis. The patient has some osteoarthritic changes in her shoulders. 2. Height 5 feet 4 inches, weight 137 pounds, BMI is 23. 3. Vital Signs: Blood pressure 119/68, pulse 83, respiratory rate 20, room air saturation 95%. 4. Pain intensity 4/5. 5. Fall risk. The patient does have some need for stability while walking. She does use a walker. She has not fallen in the last 3 months. 6. The patient is not on blood thinners 7. History of hypertension. The patient is not treated for hypertension. 8. Opioid therapy q.6 weeks. The patient [place] [address] PAIN MANAGEMENT CONSULTATION Name: CARLOTA JOYCE Room #: REG Caesar Garcia#: [id number] Admission: 12/14/17 Attend Phys: Belia Mendez MD Discharge: Date of : 34 Report #: [id number] regular basis. 9. Risk assessment tool. 10. Functional assessment total. 11. Recreational drug use. The patient denies tobacco. Former smoker. Does not smoke at this juncture. 12. Alcohol. Denies frequent use of alcohol. PHYSICAL EXAMINATION: GENERAL: The patient is a well-developed 83-year-old female. She appears her stated age. She is not in any acute distress. She appears to be doing reasonably well. Her affect is appropriate. HEENT: Normocephalic, atraumatic. Extraocular eye muscles intact. Hearing judged to be within normal limits. No significant nasal complaints. NECK: Without adenopathy. No JVD. CHEST: Decreased breath sounds bilaterally. HEART: Regular rate. ABDOMEN: Protuberant. EXTREMITIES: Note some continued discomfort and limitation in the right upper extremity. There is improved range of motion with less pain and discomfort in the affected area. Palpation around the shoulder shows less pain and discomfort, it was rated as 10/10 at the last visit and rated as 4-5 at this juncture. IMPRESSION: 1. Right shoulder pain with improvement greater than 50% after an intra-articular injection. 2. Pulmonary fibrosis. 3. Coronary artery disease. 4. Degenerative joint disease. 5. Osteoarthritis. 6. Breast cancer, status post lumpectomy, chemotherapy and radiation. 7. History of pacemaker placement. RECOMMENDATIONS: We discussed treatment options with the patient. We have just recently injected the arm. We explained to the patient that we would need to wait at least a month to note the benefits of this procedure. If her pain continues to be problematic after a month to 6 weeks. We will consider another injection. She will continue with her current medications of Mobic, Flexeril and we have provided her with Voltaren gel to rub on the affected area. She will call us if she has any problems with her medications. We would like to thank you for letting us participate in her care. We hope she continues to improve. <ELECTRONICALLY SIGNED> By: Belia Mendez MD 12/21/17 0816 1524 [id number] MD ANAMARIA Esteves
[2017-12-14 10:34] VITALS: BP 119/68
== END ==
LOC: PAIN 07:04 → HYPER 07:04 → PAIN 14:32 → HYPER 15:14
DX: J84.10 Pulmonary fibrosis, unspecified (principal); I25.10 Atherosclerotic heart disease of native coronary artery without angina pectoris; M19.011 Primary osteoarthritis, right shoulder; Z85.3 Personal history of malignant neoplasm of breast; Z95.0 Presence of cardiac pacemaker

== ENCOUNTER → 2018-01-09 | Outpatient (CLI) | payer OTHER | LOC: RAD 12:08 | DX: R91.8 Other nonspecific abnormal finding of lung field (principal); I77.79 Dissection of other specified artery; Z95.0 Presence of cardiac pacemaker ==

== ENCOUNTER → 2018-06-13 | Outpatient (CLI) | payer OTHER | LOC: HYPER 06:58 | DX: S81.812D Laceration without foreign body, left lower leg, subsequent encounter (principal); I87.2 Venous insufficiency (chronic) (peripheral); I25.10 Atherosclerotic heart disease of native coronary artery without angina pectoris; E78.5 Hyperlipidemia, unspecified; Z85.3 Personal history of malignant neoplasm of breast; Z87.891 Personal history of nicotine dependence; X58.XXXD Exposure to other specified factors, subsequent encounter ==

== ENCOUNTER → 2018-06-21 | Outpatient (CLI) | payer OTHER | LOC: HYPER 07:13 | DX: S81.812D Laceration without foreign body, left lower leg, subsequent encounter (principal); L84 Corns and callosities; I25.10 Atherosclerotic heart disease of native coronary artery without angina pectoris; I87.2 Venous insufficiency (chronic) (peripheral); E78.5 Hyperlipidemia, unspecified; J84.10 Pulmonary fibrosis, unspecified; Z85.3 Personal history of malignant neoplasm of breast; Z95.0 Presence of cardiac pacemaker; Z98.49 Cataract extraction status, unspecified eye; Z87.891 Personal history of nicotine dependence; Z85.828 Personal history of other malignant neoplasm of skin; W22.8XXD Striking against or struck by other objects, subsequent encounter ==

== ENCOUNTER → 2018-07-04 | Outpatient (CLI) | payer OTHER | LOC: HYPER 06-27 11:52 | DX: S81.812D Laceration without foreign body, left lower leg, subsequent encounter (principal); I87.2 Venous insufficiency (chronic) (peripheral); L84 Corns and callosities; E78.5 Hyperlipidemia, unspecified; I25.10 Atherosclerotic heart disease of native coronary artery without angina pectoris; J84.10 Pulmonary fibrosis, unspecified; Z85.820 Personal history of malignant melanoma of skin; Z87.891 Personal history of nicotine dependence; Z95.0 Presence of cardiac pacemaker; W22.8XXD Striking against or struck by other objects, subsequent encounter ==

== ENCOUNTER 2018-07-22 13:05 | Inpatient (IN) | payer OTHER ==
[~2018-07-22] VITALS: Ht 162.6 cm; Wt 68.0 kg
--- NOTE | ~2018-07-22 | EKG ---
[place] [address] [facility] 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 Articles: AMANDEEP : 1935 Requested By: Radha Stevens Order Number: [id number] MD: Pito Rashid Measurements Intervals [place] Rate: 91 P: -46 SD: 228 QRS: -40 QRSD: 136 T: 134 QT: 445 QTc: 548 Interpretive Statements Atrial-sensed ventricular-paced complexes No further rhythm analysis attempted due to paced rhythm Compared to ECG 05/30/2017 10:52:38 No change Electronically Signed On 07-23-2018 10:20:02 ROLL COVERER by Pito Rashid [email or web address] <ELECTRONICALLY SIGNED> By: Pito Rashid MD 07/23/18 1020 1342 Pito Rashid MD /TOYA
--- NOTE | ~2018-07-22 | HC ---
[facility] [place] [address] CONSULTATION Name: CARLOTA JOYCE Room #: 227-P ADM IN M.R.#: [id number] Admission: 07/22/18 Attend Phys: Milo Leavitt MD Discharge: Date of : 34 Report #: [id number] THIS REPORT FOR: //name// CC: Milo Leavitt DATE OF SERVICE: 07/24/2018 PRIMARY CARE PHYSICIAN: Dr. Milo Leavitt. REFERRAL PHYSICIAN: Dr. Brennen Parker. REASON FOR REFERRAL: Dyspnea. HISTORY OF PRESENT ILLNESS: The patient is an 83-year-old white female who presents to Emergency Room with progressive weakness. She was diagnosed with a UTI. She also has a history of COPD/asthma and pulmonary fibrosis. A pulmonary consultation was requested. The patient is normally followed by Dr. Armenta in the office. She is known to have COPD/asthma overlap. She is on chronic steroids or prednisone 10 mg once a day. She uses oxygen with exertion. Her baseline FEV1 is 1.1 liters, 70% predicted, FVC 1.29 liters or 58% predicted. She was diagnosed with breast cancer. DICTATION ENDS HERE. <ELECTRONICALLY SIGNED> By: Carlos Li MD 07/25/18 1850 1540 0333 Carlos Li MD /nt
--- NOTE | ~2018-07-22 | HC ---
[facility] [place] [address] CONSULTATION Name: CARLOTA JOYCE Room #: 227-P ADM IN M.R.#: [id number] Admission: 07/22/18 Attend Phys: Milo Leavitt MD Discharge: Date of : 33 Report #: [id number] THIS REPORT FOR: //name// CC: Milo Leavitt DATE OF SERVICE: 07/24/2018 PULMONARY CONSULTATION: PRIMARY CARE PHYSICIAN: Dr. Milo Leavitt. REFERRAL PHYSICIAN: Dr. Brennen Parker. REASON FOR REFERRAL: Dyspnea. HISTORY OF PRESENT ILLNESS: The patient is an 83-year-old white female who was admitted with weakness and urinary tract infection. A pulmonary consultation was requested regarding history of COPD and pulmonary fibrosis. The patient is followed longitudinally by Dr. Armenta. She has known COPD/asthma overlap syndrome. She is on chronic steroids, prednisone 10 mg once a day. She also has pulmonary fibrosis, felt to be related to radiation for breast cancer. She was in her usual state of health until 2 days ago. She was seen at Dr. Leavitt's office. She was diagnosed with UTI. Antibiotics were started. With worsening weakness, she presented to the Emergency Room. She does have trouble with mild dyspnea. Denies any chest pain, productive cough. Denies any recent hemoptysis. PAST MEDICAL HISTORY: As mentioned above. 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 PAST SURGICAL HISTORY: As mentioned above, status post right lumpectomy, tonsillectomy, bilateral tubal ligation. ALLERGIES: PENICILLIN, SULFA, reactions unspecified. HOME MEDICATIONS: List reviewed, this include Tudorza, Advair, Proventil and albuterol nebulized, Zyrtec, vitamin D, Lasix, potassium supplements, Singulair, multivitamins, prednisone 10 mg once a day. [address] [address] CONSULTATION Name: CARLOTA JOYCE Room #: 227-P [facility] IN .R.#: [id number] Admission: 07/22/18 Attend Phys: Milo Leavitt MD Discharge: Date of : 33 Report #: [id number] FAMILY HISTORY: Breast cancer in mother who at the age of 71. Father at the age of 29 due to complications from pneumonia. SOCIAL HISTORY: She has smoked for few years, quit in 1969. She drinks alcohol socially. REVIEW OF SYSTEMS: As mentioned above, otherwise 10-point system review negative. PHYSICAL EXAMINATION: GENERAL: She is awake, alert, in mild distress. She appears mildly dyspneic. VITAL SIGNS: Temperature is 97 degrees Fahrenheit, pulse is 92, respiratory rate is 18, blood pressure 146/42 mmHg, saturation 92%. HEENT: Normocephalic, atraumatic. NECK: Supple, without any lymphadenopathy or thyromegaly. CHEST: Breath sounds are fair, bilateral crackles. No wheezes. CARDIOVASCULAR: Normal S1, S2. No murmurs or gallop. There is no JVD. There is no carotid bruit. Pulses are 2+/4+ bilaterally. ABDOMEN: Soft, nontender, no organomegaly or masses felt. GENITOURINARY: Deferred. RECTAL: Deferred. EXTREMITIES: There is no edema, cyanosis or clubbing. LABORATORY DATA: Portable chest x-ray shows volume loss, mild interstitial infiltrates involving the right lung field, mild interstitial infiltrates in the left lower lung field, surgical clips seen in the right axillary area. Permanent pacemaker is noted in the left lung field. CT chest from 04/2018 shows mild bilateral bronchiectasis, predominantly in the bases, more so on the right lung field, subpleural fibrosis, patchy fibrotic changes seen in the right lower lobe. Electrolytes are normal. WBC 13,300, hemoglobin 11.4, platelets are normal, no evidence of bandemia. Albumin 2.2. IMPRESSION: 1. Dyspnea in this 83-year-old white female secondary to underlying chronic obstructive pulmonary disease and pulmonary fibrosis. 2. History of chronic obstructive pulmonary disease, presumed asthma overlap, on chronic steroids. Mild exacerbation. 3. 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 This should be followed as some of the fibrosis appears to be subpleural and is predominant in the right lower lung field area. 4. Urinary tract infection. 5. Severe protein-calorie malnutrition. [facility] [address] [place] [address] CONSULTATION Name: CARLOTA JOYCE Room #: 227-P ADM IN Dread.[place].#: [id number] Admission: 07/22/18 Attend Phys: Milo Leavitt MD Discharge: Date of : 33 Report #: [id number] 6. Nocturnal hypoxia. 7. Coronary artery disease, ischemic cardiomyopathy, ejection fraction 45%. 8. Complete heart block, status post permanent pacemaker placement. RECOMMENDATION: We will continue bronchodilators, wean O2 for saturation 90%. Agree with steroids. DVT and GI prophylaxis is recommended. Thank you for this consultation. <ELECTRONICALLY SIGNED> By: Carlos Li MD 07/25/18 [id number] Carlos Li MD /nt
--- NOTE | ~2018-07-22 | EKG ---
[place] [address] [facility] [employer] [place] [address] ELECTROCARDIOGRAM REPORT Name: CARLOTA JOYCE Room #: 423-1 ADM IN M.R.#: [id number] Admission: 07/22/18 Attend Phys: Brennen Parker Discharge: Date of : 33 Report #: [id number] THIS REPORT FOR: //name// [facility] ED Test Date: 2018-07-22 Test Time: 13:21:08 Pat Name: CARLOTA JOYCE Department: Room: [facility] Gender: F Load Manager: AMANDEEP : 1935 Requested By: Radha Stevens Order Number: [id number] MD: Pito Rashid Measurements Intervals [place] Rate: 95 P: -14 MI: 232 QRS: -32 QRSD: 131 T: 130 QT: 495 QTc: 623 Interpretive Statements Atrial-sensed ventricular-paced complexes No further rhythm analysis attempted due to paced rhythm Compared to ECG 05/30/2017 10:52:38 No change Electronically Signed On 07-23-2018 10:19:44 COPYRIGHT CLERK by Pito Rashid [email or web address] <ELECTRONICALLY SIGNED> By: Pito Rashid MD 07/23/18 1019 1321 1321 Pito Rashid MD /OTYA
[2018-07-22 13:10] VITALS: BP 120/75
[2018-07-22 13:36] LABS: URINE BILIRUBIN NEGATIVE (Negative); URINE BLOOD TRACE (Negative); URINE CLARITY CLOUDY; URINE COLOR YELLOW; URINE GLUCOSE-RANDOM* NEGATIVE (Negative); URINE KETONES NEGATIVE (Negative); URINE PROTEIN (DIPSTICK) 1+ (Negative); URINE SPECIFIC GRAVITY >= 1.030 (1.005-1.035); URINE UROBILINOGEN 0.2 E.U./dl (0.2-1.0)
[2018-07-22 13:37] LABS: URINE LEUKOCYTES-REFLEX 2+ (Negative); URINE NITRITE-REFLEX POSITIVE (Negative)
[2018-07-22 13:48] LABS: HEMATOCRIT 35.2 % (37.0-47.0); HEMOGLOBIN 11.4 gm/dL (12.0-15.0); MCH 27.4 pg (26.0-34.0); MCHC 32.5 g/dL (28.0-37.0); MCV 84.3 fL (80.0-100.0); PLATELET COUNT 152 thou/uL (150-400); RBC 4.17 mil/uL (4.20-5.00); RDW 16.2 % (10.5-14.5); WBC 13.3 thou/uL (4.0-11.0)
[2018-07-22 13:55] LABS: ANION GAP 8 mmol/L (7-16); BUN 9 mg/dL (7-18); CALCIUM 8.5 mg/dL (8.5-10.1); CHLORIDE 103 mmol/L (98-107); CO2 27 mmol/L (21-32); CREATININE 0.9 mg/dL (0.6-1.0); GLUCOSE 87 mg/dL (74-106); POTASSIUM 4.3 mmol/L (3.5-5.1); SODIUM 138 mmol/L (136-145)
[2018-07-22 13:56] LABS: BACTERIA-REFLEX >30 Many /HPF (None Seen); CASTS None Seen /LPF (None Seen); SQUAMOUS 0-3 Few /LPF (0-3); URINE RBC 3-10 Few /HPF (0-2); URINE WBC-REFLEX >25 Many /HPF (0-5)
[2018-07-22 13:57] LABS: CRYSTALS None Seen /LPF (None Seen)
[2018-07-22 14:03] LABS: ALBUMIN 2.4 g/dL (3.4-5.0); SGOT 25 U/L (15-37); SGPT 17 U/L (30-65); TOTAL BILIRUBIN 0.4 mg/dL (<0.1-1.0); TOTAL PROTEIN 6.2 g/dL (6.4-8.2); TROPONIN-I <0.06 ng/mL (<0.06)
[2018-07-22 14:32] VITALS: BP 120/75
[2018-07-22 14:35] LABS: ATYPICAL LYMPHS 1 %
[2018-07-22 14:36] LABS: ABSOLUTE NEUTROPHILS 9.8 thou/uL (1.4-8.2); ANISOCYTOSIS 1+
[2018-07-22 15:36] VITALS: BP 114/63
[2018-07-22 19:30] VITALS: BP 134/75
[2018-07-23 05:33] VITALS: BP 117/87
[2018-07-23 06:37] LABS: HEMATOCRIT 31.7 % (37.0-47.0); HEMOGLOBIN 10.8 gm/dL (12.0-15.0); MCH 28.5 pg (26.0-34.0); RBC 3.77 mil/uL (4.20-5.00); RDW 15.7 % (10.5-14.5); WBC 10.9 thou/uL (4.0-11.0)
[2018-07-23 06:56] LABS: ALBUMIN 2.2 g/dL (3.4-5.0); CALCIUM 8.2 mg/dL (8.5-10.1); CREATININE 0.7 mg/dL (0.6-1.0); PHOSPHORUS 3.8 mg/dL (2.5-4.9); POTASSIUM 4.1 mmol/L (3.5-5.1)
[2018-07-23 08:43] VITALS: BP 146/42
[2018-07-23 08:52] VITALS: BP 134/75
[2018-07-24 12:25] VITALS: BP 146/42
[2018-07-25 04:14] LABS: CALCIUM 8.3 mg/dL (8.5-10.1); CREATININE 0.9 mg/dL (0.6-1.0); POTASSIUM 4.5 mmol/L (3.5-5.1)
[2018-07-26 09:59] LABS: CALCIUM 8.6 mg/dL (8.5-10.1); POTASSIUM 3.5 mmol/L (3.5-5.1)
[2018-07-26 21:26] VITALS: BP 125/76
[2018-07-27 09:46] VITALS: BP 125/76
[2018-07-27 19:37] VITALS: BP 134/78
[2018-07-28] MEDS ORDERED: CEFDINIR300 MG PO (08:18)
[2018-07-28] MEDS ORDERED: PREDNISONE 10 M10 MG PO (08:18)
== END 2018-07-28 12:12 | disposition home health service (06) | DRG 871 ==
LOC: ER 13:05 → EROBS 14:25 → 4E 14:25 → SICU 07-25 17:33 → ENTRNSPT 07-28 11:50 → EDTRNSPTSTS 07-28 12:01 → SICU 07-28 12:12
PROVIDERS: Family Medicine; Hospitalist; Nurse Practitioner Family
DX: A41.9 Sepsis, unspecified organism (principal); E43 Unspecified severe protein-calorie malnutrition; J18.9 Pneumonia, unspecified organism; I44.2 Atrioventricular block, complete; J98.11 Atelectasis; J44.0 Chronic obstructive pulmonary disease with (acute) lower respiratory infection; N30.90 Cystitis, unspecified without hematuria; L89.151 Pressure ulcer of sacral region, stage 1; R41.0 Disorientation, unspecified; J45.909 Unspecified asthma, uncomplicated; J84.10 Pulmonary fibrosis, unspecified; I25.10 Atherosclerotic heart disease of native coronary artery without angina pectoris; I25.5 Ischemic cardiomyopathy; R09.02 Hypoxemia; B96.20 Unspecified Escherichia coli [E. coli] as the cause of diseases classified elsewhere; Z95.0 Presence of cardiac pacemaker; Z88.0 Allergy status to penicillin; Z88.2 Allergy status to sulfonamides; Z87.891 Personal history of nicotine dependence; Z85.3 Personal history of malignant neoplasm of breast; Z83.6 Family history of other diseases of the respiratory system; Z68.25 Body mass index [BMI] 25.0-25.9, adult; Z79.52 Long term (current) use of systemic steroids; Z79.899 Other long term (current) drug therapy
CPT/HCPCS: 10084; 15002